=== PATIENT | female | born 1970 | race Asian ===

== ENCOUNTER 2018-06-20 02:08 | Emergency (ER) | payer MEDICARE ==
[~2018-06-20] VITALS: Ht 160 cm; Wt 79.5 kg
[2018-06-20 02:34] VITALS: BP 149/77; TEMP 98.5
[2018-06-20 04:14] LABS: BASO % 0.3 % (0.0-2.0); EOS # 0.3 (0.0-0.7); EOS % 2.5 % (0-4.0); GRAN # 6.5 (1.4-6.5); GRAN % 62.7 % (42.2-75.2); HEMATOCRIT 41.5 % (37.0-47.0); HEMOGLOBIN 13.7 g/dl (12.5-16.0); LYMPH # 2.9 (1.2-3.4); LYMPH % 28.1 % (20.0-51.0); MEAN CELL VOLUME 86 fl (80.0-100.0); MEAN CORPUSCULAR HEMOGLOBIN 29 pg (27.0-31.0); MEAN CORPUSCULAR HGB CONC 33 g/dl (33.0-37.0); MEAN PLATELET VOLUME 8.8 fl (7.4-10.4); MONO # 0.6 (0.1-0.6); MONO % 5.4 % (1.7-9.3); PLATELET COUNT 293 K/mm3 (130-400); RED BLOOD COUNT 4.81 M/mm3 (4.10-5.30); REDCELL DISTRIBUTION WIDTH-CV 14.4 % (11.5-14.5)
[2018-06-20 04:36] LABS: CALCIUM 8.1 mg/dL (8.4-10.2); CREATININE, serum 0.92 mg/dL (0.52-1.25)
[2018-06-20] MEDS ORDERED: BACTRIM DS 8001 TAB PO (05:03)
[2018-06-20] MEDS ORDERED: KLOR-CON 1010 MEQ PO (05:05)
[2018-06-20 05:43] VITALS: PULSE 80
== END 2018-06-20 05:43 | disposition home or self-care (01) ==
LOC: COL.ER 02:08
PROVIDERS: Emergency Medicine
DX: R10.9 Unspecified abdominal pain (principal); E87.6 Hypokalemia; F17.210 Nicotine dependence, cigarettes, uncomplicated; F12.90 Cannabis use, unspecified, uncomplicated; Z90.49 Acquired absence of other specified parts of digestive tract; Z98.890 Other specified postprocedural states; Z93.3 Colostomy status

== ENCOUNTER → 2021-10-20 | Outpatient (CLI) | payer MEDICARE ==
[~2021-10-20] MED LIST: BACTRIM DS 8001 TAB PO; KLOR-CON 1010 MEQ PO
[2021-10-20 15:08] VITALS: BP 187/119; PULSE 71
--- NOTE | 2021-10-20 15:11 | NUR ---
SEE MERGE FOR ALL MEDICATION ADMINISTRATION TIMES, INTRA AND POST SEDATION ASSESSMENT
== END ==
LOC: COL.CAR 11:44
DX: I21.4 Non-ST elevation (NSTEMI) myocardial infarction (principal); E78.5 Hyperlipidemia, unspecified; I12.9 Hypertensive chronic kidney disease with stage 1 through stage 4 chronic kidney disease, or unspecified chronic kidney disease; N18.30 Chronic kidney disease, stage 3 unspecified; E11.22 Type 2 diabetes mellitus with diabetic chronic kidney disease; E11.65 Type 2 diabetes mellitus with hyperglycemia; E87.6 Hypokalemia; F17.210 Nicotine dependence, cigarettes, uncomplicated; Z90.49 Acquired absence of other specified parts of digestive tract; Z79.899 Other long term (current) drug therapy; Z20.822 Contact with and (suspected) exposure to COVID-19
CPT/HCPCS: C1725; C1769; C1874; C1887; C9600; J1200; J1644; J2250; J2930; J3010

== ENCOUNTER 2021-12-13 16:15 | Observation (INO) | payer MEDICARE ==
--- NOTE | 2021-12-13 17:10 | NUR ---
Report received from [facility] and EMS. Patient oriented to room and ambulatory to bed in 222. Vital signs stable. Assessment completed. Dr Roles notified of patient's arrival. Will be over to assess patient soon. Pt left with call light. Plan of care discussed. Pt verbalizes understanding.
[2021-12-13 17:28] VITALS: BP 158/67; PULSE 69; TEMP 99.1
[2021-12-13 19:12] VITALS: BP 165/76; PULSE 80; TEMP 98.7
[2021-12-13 20:39] LABS: BASO # 0.1 K/mm3 (0.0-0.2); BASO % 0.4 % (0.0-2.0); EOS # 0.5 K/mm3 (0.0-0.7); EOS % 3.9 % (0.0-4.0); GRAN # 7.5 K/mm3 (1.4-6.5); LYMPH # 3.6 K/mm3 (1.2-3.4); MEAN CELL VOLUME 81 fl (80.0-100.0); MEAN CORPUSCULAR HGB CONC 33 g/dl (33.0-37.0); MONO # 0.6 K/mm3 (0.1-0.6); MONO % 4.9 % (1.7-9.3); PLATELET COUNT 402 K/mm3 (130-400); RED BLOOD COUNT 3.27 M/mm3 (4.10-5.30); REDCELL DISTRIBUTION WIDTH-CV 15.1 % (11.5-14.5)
[2021-12-13 20:40] LABS: HEMATOCRIT 26.5 % (37.0-47.0); HEMOGLOBIN 8.6 g/dl (12.5-16.0); MEAN CORPUSCULAR HEMOGLOBIN 26 pg (27-31)
[2021-12-13 20:53] LABS: CALCIUM 8.5 mg/dL (8.4-10.2); CREATININE, serum 2.92 mg/dL (0.57-1.11); POTASSIUM 3.2 mmol/L (3.5-4.5)
[2021-12-13 23:10] VITALS: BP 164/89; PULSE 87; TEMP 97.8
[2021-12-14 03:35] VITALS: BP 180/70; PULSE 70; TEMP 98.5
[2021-12-14] MEDS ORDERED: COREG12.5 MG PO (03:50)
[2021-12-14] MEDS ORDERED: ADALAT CC90 MG PO (03:50)
[2021-12-14 05:39] LABS: BASO # 0.1 K/mm3 (0.0-0.2); BASO % 0.5 % (0.0-2.0); EOS # 0.4 K/mm3 (0.0-0.7); EOS % 3.3 % (0.0-4.0); GRAN # 7.4 K/mm3 (1.4-6.5); GRAN % 67.3 % (42.2-75.2); LYMPH # 2.5 K/mm3 (1.2-3.4); LYMPH % 23.1 % (20.0-51.0); MEAN CELL VOLUME 81 fl (80.0-100.0); MEAN CORPUSCULAR HGB CONC 32 g/dl (33.0-37.0); MEAN PLATELET VOLUME 8.6 fl (7.4-10.4); MONO # 0.6 K/mm3 (0.1-0.6); MONO % 5.3 % (1.7-9.3); PLATELET COUNT 314 K/mm3 (130-400); RED BLOOD COUNT 2.94 M/mm3 (4.10-5.30); REDCELL DISTRIBUTION WIDTH-CV 15.1 % (11.5-14.5)
[2021-12-14 05:42] LABS: HEMATOCRIT 23.9 % (37.0-47.0); HEMOGLOBIN 7.6 g/dl (12.5-16.0); MEAN CORPUSCULAR HEMOGLOBIN 26 pg (27-31)
[2021-12-14 05:45] VITALS: BP 164/68; PULSE 59
[2021-12-14 06:00] LABS: ALBUMIN 2.6 gm/dL (3.5-5.0); CREATININE, serum 2.68 mg/dL (0.57-1.11); PHOSPHOROUS 4.2 mg/dL (2.3-4.7)
[2021-12-14] MEDS ORDERED: ASPIRIN 81M81 MG/TA2 PO (06:45)
[2021-12-14] MEDS ORDERED: ADALAT CC30 MG PO (06:47)
[2021-12-14] MEDS ORDERED: LANTUS SOLOS100 U/ML SQ (06:49)
[2021-12-14] MEDS ORDERED: K-DUR20 MEQ PO (06:49)
[2021-12-14] MEDS ORDERED: LIPITOR 40MG TA40 MG PO (06:49)
[2021-12-14] MEDS ORDERED: PLAVIX 75MG TAB75 MG PO (06:50)
[2021-12-14] MEDS ORDERED: NITROSTAT0.4 MG/TAB SL (06:51)
[2021-12-14 07:02] VITALS: BP 158/70; PULSE 59; TEMP 98.6
--- NOTE | 2021-12-14 07:14 | NUR ---
Assessment complete. Pt resting in bed, A&O x 4, denies pain at this time. VSS. Physical assessment unremarkable. No IV site noted. Pt reports it was taken out d/t pain at site with flushing. No further needs reported. Call light in reach.
--- NOTE | 2021-12-14 09:07 | NUR ---
JO and SW student met with the patient to discuss discharge plan. The patient lives in [place] with her eioxgd-wugn-grm daughter, Indiana (ph#[phone]), and rmikack-prwj-oxm son, Jaquan. She states that [place] is looking after Jaquan while she is here. She reports independence with ADLs and does not have any DME. The patient's primary care provider is Sumi Serrato APRN, FNP-C at [facility] in and she receives her medications from [facility]. She states that [facility] assists her with her meds. The patient does not have a DPOA-HC, but she was interested in obtaining a form. JO provided. The patient states that she is not and has four children. Three over the age of 18. Sapp[place], Wagner, and January. The patient plans on returning home with her family upon discharge. Due to her medical condition and health problems, the patient states that she will be working with the [employer] to have her oldest daughter become her son's guardian. The patient had no concerns for SW. No additional needs at this time. *Discharge plan: home with family*
--- NOTE | 2021-12-14 10:37 | NUR ---
Initial visit; Patient thanked Outcomes Analyst for looking in on her and offering God's blessings.
--- NOTE | 2021-12-14 11:17 | NUR ---
Ostomy supplies provided for pt. Pt verbalizes comfort with managing the colostomy independently. This nurse encourages pt to push call light if she needs help.
[2021-12-14 13:50] VITALS: BP 155/81; PULSE 62; TEMP 98.1
--- NOTE | 2021-12-14 14:42 | NUR ---
The patient was downgraded to observation status. JO, JO student, and technical marketing engineer, Gustavo, met with the patient to notify. JO presented and read the Medicare Outpatient Observation Notice Form outloud to the patient. The patient verbalized understanding and signed the form. JO provided her with a copy.
[2021-12-14 16:28] VITALS: BP 159/81; PULSE 70; TEMP 98.2
[2021-12-14 20:00] VITALS: BP 135/65; PULSE 69; TEMP 98.8
--- NOTE | 2021-12-14 20:00 | NUR ---
PT'S OXYGEN SATURATION 98% ON ROOM AIR.
[2021-12-15 00:30] VITALS: BP 136/51; PULSE 70; TEMP 98.7
[2021-12-15 05:30] VITALS: BP 150/67; PULSE 71; TEMP 98.8
[2021-12-15 06:17] LABS: BASO % 0.2 % (0.0-2.0); EOS # 0.4 K/mm3 (0.0-0.7); GRAN # 8.8 K/mm3 (1.4-6.5); GRAN % 71.6 % (42.2-75.2); LYMPH # 2.5 K/mm3 (1.2-3.4); LYMPH % 20.1 % (20.0-51.0); MEAN CELL VOLUME 81 fl (80.0-100.0); MEAN CORPUSCULAR HGB CONC 32 g/dl (33.0-37.0); MEAN PLATELET VOLUME 8.5 fl (7.4-10.4); MONO # 0.6 K/mm3 (0.1-0.6); MONO % 4.5 % (1.7-9.3); PLATELET COUNT 328 K/mm3 (130-400); RED BLOOD COUNT 3.18 M/mm3 (4.10-5.30); REDCELL DISTRIBUTION WIDTH-CV 15.7 % (11.5-14.5)
[2021-12-15 06:22] LABS: HEMATOCRIT 25.6 % (37.0-47.0); HEMOGLOBIN 8.2 g/dl (12.5-16.0); MEAN CORPUSCULAR HEMOGLOBIN 26 pg (27-31)
[2021-12-15 06:33] LABS: ALBUMIN 2.7 gm/dL (3.5-5.0); CALCIUM 8.1 mg/dL (8.4-10.2); CREATININE, serum 2.56 mg/dL (0.57-1.11); MAGNESIUM 1.9 mg/dL (1.6-2.6); PHOSPHOROUS 4.4 mg/dL (2.3-4.7)
[2021-12-15 07:00] VITALS: BP 138/75; PULSE 67; TEMP 98
== END 2021-12-15 12:35 | disposition home or self-care (01) ==
LOC: NSY 16:15 → OB 16:17
PROVIDERS: ADMIT Internal Medicine
DX: N93.9 Abnormal uterine and vaginal bleeding, unspecified (principal); I25.10 Atherosclerotic heart disease of native coronary artery without angina pectoris; D50.0 Iron deficiency anemia secondary to blood loss (chronic); I12.9 Hypertensive chronic kidney disease with stage 1 through stage 4 chronic kidney disease, or unspecified chronic kidney disease; N18.4 Chronic kidney disease, stage 4 (severe); E11.22 Type 2 diabetes mellitus with diabetic chronic kidney disease; E87.6 Hypokalemia; F17.290 Nicotine dependence, other tobacco product, uncomplicated; Z95.5 Presence of coronary angioplasty implant and graft; Z79.899 Other long term (current) drug therapy
CPT/HCPCS: 99233-AI; G0378; J1815

== ENCOUNTER 2024-07-31 06:21 | Outpatient (CLI) | payer MEDICARE ==
[~2024-07-31] VITALS: Ht 160 cm; Wt 62.6 kg
[2024-07-31] VITALS (8 sets, daily range): BP systolic 152–174; BP diastolic 72–91; PULSE 48–73; TEMP 98.6
[~2024-07-31 06:21] MED LIST changes: +ADALAT CC30 MG PO; +ADALAT CC90 MG PO; +ASPIRIN 81M81 MG/TA2 PO; +COREG12.5 MG PO; +K-DUR20 MEQ PO; +LANTUS SOLOS100 U/ML SQ; +LIPITOR 40MG TA40 MG PO; +NITROSTAT0.4 MG/TAB SL; +PLAVIX 75MG TAB75 MG PO
[2024-07-31] MEDS ORDERED: ceFAZolin 1 G in Water For Injection,Sterile 10 ML IV SCH (07:45)
[2024-07-31] MEDS ORDERED: APRESOLINE50 MG PO (08:01)
[2024-07-31] MEDS ORDERED: NORVASC 10MG10 MG PO (08:02)
[2024-07-31] MEDS ORDERED: KEPPRA250 MG PO (08:03)
[2024-07-31] MEDS ORDERED: KEPPRA 500MG500 MG PO (08:06)
--- NOTE | 2024-07-31 08:10 | NUR ---
Patient to procedure,report to Yessenia Li.
[2024-07-31] MEDS ORDERED: Heparin 1,000 UNITS/ML 10 ML Multi-Dose VIAL IV SCH ×2 (08:49→08:56)
[2024-07-31] MEDS ORDERED: Midazolam 2 MG/2 ML VIAL IV SCH (08:57)
[2024-07-31] MEDS ORDERED: fentaNYL 50 MCG/ML 2 ML VIAL IV SCH (08:58)
--- NOTE | 2024-07-31 09:21 | NUR ---
Erica is transferred back to express unit after TDC exchange with Dr. Bowers. She is awake and alert, pwd with reg and unlabored respirations. Dressing is 3/4 saturated with blood. Plan to hold pressure and redress with sterie gauze and tegaderm. bs report and handoff of care to Nirmala RUIZ.
--- NOTE | 2024-07-31 09:37 | NUR ---
Patient returned from procedure.pt arrived with a moderate amount of blood on dressing.Dressing changed by Jen,laborer wood preserving plant nurse.Report from Jen.Will continue to monitor.
--- NOTE | 2024-07-31 10:16 | NUR ---
Patient's dressing has observed blood on dressing to dialysis cath.Jen,can labeler nurse notified.Pressure applied for 6 moniutes.Per Yessenia Li she will return to change dressing.
--- NOTE | 2024-07-31 10:31 | NUR ---
Pressure held for 5 minutes [facility] clinical research tech arrived to change dressing.
--- NOTE | 2024-07-31 11:44 | NUR ---
Dressing to dialysis access observed clean,dry,and intact.Discharge instructions given to pt.Pt verbalizes understanding.pt escorted out via wheelchair by this nurse.
== END 2024-07-31 17:21 ==
LOC: COL.CAR 06:21
DX: T82.49XA Other complication of vascular dialysis catheter, initial encounter (principal); I12.9 Hypertensive chronic kidney disease with stage 1 through stage 4 chronic kidney disease, or unspecified chronic kidney disease; N18.6 End stage renal disease; Z99.2 Dependence on renal dialysis
CPT/HCPCS: C1751; J0690; J1644; J2250; J3010